=== PATIENT | female | born 1990 | race Caucasian/White ===

== ENCOUNTER 2024-03-31 08:50 | Outpatient (CLI) | payer BC, SELFPAY ==
--- OUTSIDE RECORDS SUMMARY | 2024-03-31 08:54 | XMS_ITS | Clinical Summary ---
Author Name Unknown Organization [facility] Address [address] [place] [address] Care Team Providers Care Supervisor Refining Name Role Phone None Reported, Pcp Primary Care Provider Unavail able Source Comments Patient records contain information from all sites at [facility]. For routine questions regarding patient records, call [phone] during business hours, M-F 8:00 AM - 5:00 PM Central Time. Record requests for emergency care only can be directed to [phone] at any time.[facility] Allergies Active Allergy Reactions Criticality Noted Date Comments Sulfa (Sulfonamide Antibiotics) Other (see comments) 01/08/2017 Medications Medication Sig Dispensed Refills Start Date End Date Status PNV NO.95/FERROUS FUM/FOLIC AC ( MULTIVITAMINS ORAL) Take by mouth daily. 01/08/2017 Active ibuprofen (ADVIL,MOTRIN) 600 mg tablet 07/26/2020 Active metoclopramide (REGLAN) 10 mg tablet 08/11/2020 Act carlene albuterol 90 mcg/actuation inhaler Inhale 1-2 puffs every 4 (four) hours as needed for wheezing or shortness of breath. Active buPROPion XL (WELLBUTRIN XL) 150 mg 24 hr tablet Take 150 mg by mouth daily. 10/02/2023 Active escitalopram (LEXAPRO) 20 mg tablet Take 20 mg by mouth daily. 08/22/2023 Active valACYclovir (VALTREX) 500 mg tablet Take 500 mg by mouth as needed. Active Active Problems No known active problems Immunizations Name Administration Dates Next Due Influenza, Unspecified 09/04/2016 Family History Medical History Relation Name Comments Heart attack Father COPD Grandfather 1 Paternal Diabetes Grandfather 1 Paternal Heart attack Grandfather 2 Maternal Skin cancer Grandfather 2 Maternal Hypertension Grandmother 1 Maternal Hypertension Grandmother 2 Paternal Relation Name Status Comments Father Grandfather 1 Paternal Grandfather 2 Maternal Grandmother 1 Maternal Grandmother 2 Paternal Social History Tobacco Use Types Packs/Day Years Used Date Smoking Tobacco: Never Smokeless Tobacco: Never Overall Financial Resource Strain (CARDIA) Answe r Date Recorded How hard is it for you to pa y for the very basics like food, housing, medical care, and heating? Not very hard 11/04/2023 PHQ-2 Answer Date Recorded PHQ-2 Score 1 08/28/2020 Exercise Vital Sign Answer Date Recorde d On average, how many days pe r week do you engage in moderate to strenuous exercise (like a brisk walk)? 2 days 11/04/2023 On average, how many minutes do you engage in exercise at this level? 30 min 11/04/2023 Hunger Vital Sign Answer Date Recorded Within the past 12 months, y ou worried that your food would run out before you got the money to buy more. Never true 11/04/20 Within the past 12 months, t he food you bought just didn't last and you didn't have money to get more. Never true 11/04/2023 PRAPARE - Transportation Answer Date Re corded In the past 12 months, has l ack of transportation kept you from medical appointments or from getting medications? No 10/24 In the past 12 months, has l ack of transportation kept you from meetings, work, or from getting things needed for daily living? No 11/04/2023 Depression Answer Date Recor ded PHQ-9 Total Score (max 27) 6 08/28 Nutrition Answer Date Recorded Nutrition: EVOO Fat Source Unknown 11/04 On average, how many serving s of fruits and vegetables do you eat per day (serving size is equal to 1 cup or approximately the size of a tennis ball)? 3-5 11/04/2023 Dental Answer Date Recorded Dental: Regular Dentist Yes 11/04/20 Employment Answer Date Recorded Employment status Employed and actively working without restrictions 11/04/2023 Housing Stability Answer Date Recorded What is your living situation today? I have a [facility] place to live 11/04/2023 Sex and Gender Information Value Date Recorded Sex Assigned at Female 08/08/2019 10:17 PM CDT Gender Identity Female 08/08/2019 10:17 PM CDT Sexual Orientation Straight 08/08/2019 10 :17 PM CDT Last Filed Vital Signs Vital Sign Reading Time Taken Comments Blood Pressure 110/63 08/28/2020 10:10 AM CDT Pulse 77 08/28/2020 10:10 AM CDT Temperature 36.6 ??C (97.9 ??F) 08/28/2020 10:10 AM C DT Respiratory Rate 12 08/28/2020 10:10 AM CDT Oxygen Saturation 97% 08/28/2020 10:10 AM CDT Inhaled Oxygen Concentration - - Weight 95.8 kg (211 lb 3.2 oz) 08/28/2020 10:10 AM CDT Height 161 cm (5' 3.39) 08/28/2020 10:10 AM CDT Body Mass Index 36.96 08/28/2020 10:10 AM CDT Plan of Treatment Health Maintenance Due Date Last Done Comments Cervical Cancer Screening 1988 Hepatitis C Screening 1988 Hepatitis B Vaccines (1 of 3 - 19+ 3-dose series) 2007 Depression Screening (Annual PHQ-2) 11/24/2023 Lipid (Cholesterol) Screening 08/22/2028 08/22/2023, 09/04/2022, 11/15/2019, Additional history exists DTaP,Tdap,and Td Vaccines (4 - Td or Tdap) 05/23/2030 05/23/2020, 07/06/2017, 12/03/2011 HPV Vaccines Completed 02/01/2009, 11/0 02/2008, 07/27/2008 HIV Screening Completed 02/05/2017 Influenza Vaccine Completed 08/22/2023, , 08/14/2021, Additional history exists COVID-19 Vaccine Completed 08/26/2023, , 09/25/2021, Additional history exists Pneumococcal vaccine (0-64 years) Aged Out No longer eligible based on patient's age to complete this topic Procedures Procedure Name Priority Date/Time Associated Diagnosis Comments EXTI LIPID PANEL W REFLEX MEASURED LDL Routine 08/22/2023 9:36 AM CDT HIV-1/-2 AG AND AB SCREEN Routine 02/05/2017 3:30 PM CDT from Last 3 Months or Most Recently Relevant to Health Maintenance Results * HIV-1/-2 Ag and Ab Screen (02/05/2017 3:30 PM CDT) HIV-1/-2 Antibody Negative Negative POWERCHART Comment: Negative result does not rule out HIV infection. If acute HIV infection is suspected in a high-risk individual, submit plasma specimen for HIV-1 RNA quantification test (HIVDQ) and/or HIV-2 DNA/RNA test (FHV2Q). Test Performed by: [address] [address] Blood 02/05/2017 3:30 PM CDT Emilia Weaver APRN C.N.P. LAB MICROBIOLO GY - BLOOD ORDERABLES POWERCHART from Last 3 Months or Most Recently Relevant to Health Maintenance Care Teams Supervisor Refining Relationship Specialty Start Date End Date None Reported, Pcp PCP - General 09/01/23
--- OUTSIDE RECORDS SUMMARY | 2024-03-31 08:54 | XMS_ITS ---
Author Name Unknown Organization [facility] Address [address] [place] [address] Care Team Providers Care Registered Clinical Dietitian Name Role Phone Unavailable Unavailable Unavailable Surgery Details Not on file Complications Check Surgery Details section. Procedure Estimated Blood Loss Check Surgery Details section. Procedure Findings Check Surgery Details section. Procedure Specimens Taken Check Surgery Details section.
--- OUTSIDE RECORDS SUMMARY | 2024-03-31 08:54 | XMS_ITS | Referral Summary ---
Author Name Unknown Organization [facility] Address [address] [place] [address] Care Team Providers Care Glass Bulb Silverer Name Role Phone None Reported, Pcp Primary Care Provider Unavail able Source Comments Patient records contain information from all sites at [facility]. For routine questions regarding patient records, call [phone] during business hours, M-F 8:00 AM - 5:00 PM Central Time. Record requests for emergency care only can be directed to [phone] at any time.[facility] Allergies Active Allergy Reactions Criticality Noted Date [...] Administration Dates Next Due Influenza, Unspecified 09/04/2016 Social History Tobacco Use Types Packs/Day Years [...] money to buy more. Never true 11/04/20 23 Within the past 12 months, t he [...] your living situation today? [facility] 11/04/2023 Sex and Gender [...] 08/28/2020 10:10 AM CDT Plan of Treatment Not on file Procedures Procedure Name Priority Date/Time Associated Diagnosis Comments EXTI LIPID PANEL W REFLEX MEASURED LDL Routine 08/22/2023 9:36 AM CDT HIV-1/-2 AG AND AB SCREEN Routine 02/05/2017 3:30 PM CDT from Last 3 Months or Most Recently Relevant to Health Maintenance Results * HIV-1/-2 Ag and Ab Screen (02/05/2017 3:30 PM CDT) Pathologist [facility] HIV-1/-2 Antibody Negative Negative POWERCHART Comment: Negative result does not rule out HIV infection. If acute HIV infection is suspected in a high-risk individual, submit plasma specimen for HIV-1 RNA quantification test (HIVDQ) and/or HIV-2 DNA/RNA test (FHV2Q). Test Performed by: [address] [address] Blood 02/05/2017 3:30 PM CDT Emilia Weaver APRN, C.N.P. LAB MICROBIOLO GY - BLOOD ORDERABLES POWERCHART from Last 3 Months or Most Recently Relevant to Health Maintenance Care Teams Glass Bulb Silverer Relationship Specialty Start Date End Date None Reported, Pcp PCP - General 09/01/23
--- OUTSIDE RECORDS SUMMARY | 2024-03-31 08:55 | XMS_ITS | Clinical Summary ---
Author Name Unknown Organization [facility] Address [place], [place] [address] Care Team Providers Care Laundry Agent Name Role Phone Fatou Malik Primary Care Provider Allergies Active Allergy Reactions Criticality Noted Date Comments Sulfa (Sulfonamide Antibiotics) Rash 12/25 Sulfasalazine Rash Low 09/02/2013 Medications Medication Sig Dispensed Refills Start Date End Date Status albuterol HFA (Ventolin HFA) 90 mcg/actuation inhaler Inhale 1-2 Puffs by mouth every 4 hours if needed. Active valACYclovir (VALTREX) 500 mg tablet Take 500 mg by mouth two times daily. Active buPROPion (WELLBUTRIN XL) 150 mg Extended-Release tabletIndication s:Depression, major, single episode, moderate (HC) Take 1 Tablet (150 mg) by mouth every morning. 100 Tablet 1 03/26/2024 Active escitalopram oxalate (LEXAPRO) 10 mg tabletIndication s:Depression, major, single episode, moderate (HC) Take 1 Tablet (10 mg) by mouth once daily. 100 Tablet 1 03/26/2024 Active CPAPIndications: Obstructive sleep apnea CPAP machine for home use at pressure: 5-16 cmw , Heated humidifier x 1 q 5 yr, Humidifier chamber x 1 q 6 mo, full face mask x1 q 3mos, with cushion x 1 q mo, Heated tubing x 1 q 3 mo, Headgear x 1 q 6 mo, Filters: Disposable x 2 q mo non-disposable filters x1 q 6mo, Length of Need: 99 months, Frequency of use: Daily 1 Each 11 03/26/2024 Active buPROPion (WELLBUTRIN XL) 150 mg Extended-Release tabletIndication s:Depression, major, single episode, moderate (HC) Take 1 Tablet (150 mg) by mouth every morning. 100 Tablet 1 10/02/2023 03/26/2024 Discontinue d(Reorder (E-cancel not sent)) CPAPIndications: Obstructive sleep apnea,Snoring,Ex cessive daytime sleepiness New CPAP machine for home use at pressure: 5-16 cmw , Heated humidifier x 1 q 5 yr, Humidifier chamber x 1 q 6 mo, nasal mask x1 q 3mos, with cushion x 2 q mo, Heated tubing x 1 q 3 mo, Headgear x 1 q 6 mo, Filters: Disposable x 2 q mo non-disposable filters x1 q 6mo, Length of Need: 99 months, Frequency of use: Daily 1 Each 12/02/2023 03/26/2024 Discontinue d(Reorder (E-cancel not sent)) CPAPIndications: Obstructive sleep apnea CPAP machine for home use at pressure: 5-16 cmw , Heated humidifier x 1 q 5 yr, Humidifier chamber x 1 q 6 mo, nasal mask x1 q 3mos, with cushion x 2 q mo, Heated tubing x 1 q 3 mo, Headgear x 1 q 6 mo, Filters: Disposable x 2 q mo non-disposable filters x1 q 6mo, Length of Need: 99 months, Frequency of use: Daily 1 Each 03/26/2024 03/26/2024 Discontinue d(*Medicati on adjustment) Active Problems Problem Noted Date Diagnosed Date Genital herpes simplex 03/05/2017 Obesity 03/05/2017 Allergic rhinitis due to other allergen 09/02/20 13 Intermittent asthma 09/02/2013 Encounters Date Type Department Care Team Description 03/26/2024 3:00 PM CDT Telemedicine [facility] Sathya Fournier [address] [place] [address] Fela Rodriguez NP Telehealth 03/26/2024 [place] [facility] [address] [place] [address] Prabha Puente NP Refill Request (Bupropion) 03/26/2024 Travel from Last 3 Months Immunizations Name Administration Dates Next Due COVID-19 vaccine ([employer] 30mcg/0.3mL) 12YO+ BIVALENT PF, MDV 09/06/2022 Human Papilloma Virus Vaccine 02/01/2009, 008,07/27/2008 Influenza Virus, Unspecified 08/14/2021, 09/04/2016,08/28/2016,2013,08/27/2013 Influenza, IIV3 (Age >=3 years) 11/01/2011 Influenza, IIV4 08/22/2023,,07/14/2020,2017,08/04/2017,08/28/2016 Influenza, IIV4 (=>6mos) MDV 09/20/2019 Influenza, Injectable, Mdck, Quadrivalent, W/preservative 08/14/2021 Tdap 05/23/2020,07/06/2017,12/03/2011 Typhoid (oral) 05/25/2023 Family History Medical History Relation Name Comments Heart attack Father Thyroid Disease Maternal Grandmother Hypertension Mother Psoriasis Mother COPD Paternal Grandfather Smoker Rheum arthritis Paternal Grandmother Relation Name Status Comments Brother 1 Alive Brother 2 Alive Father Alive Maternal Grandfather Maternal Grandmother Mother Alive Paternal Grandfather Paternal Grandmother Sister Alive Social History Tobacco Use Types Packs/Day Years Used Date Smoking Tobacco: Never Smokeless Tobacco: Never Tobacco Cessation:Counseling Given: Yes Alcohol Use Standard Drinks/Week Comments Yes 0 (1 standard drink = 0.6 oz pur e alcohol) 1 beer per night PHQ-2 Answer Date Recorded PHQ-2 TOTAL SCORE 0 03/26/2024 Social Connections Answer Date Recorded Frequency of Communication with Friends and Fami ly 0 08/22/2023 Financial Resource Strain Answer Date R ecorded Difficulty of Paying Living Expenses 3 08/22/2023 Difficulty of Paying Living Expenses Not on file 08/22/2023 Food Insecurity Answer Date Recorded Worried About Running Out of Food in the Last Ye ar 1 08/22/2023 Transportation Needs Answer Date Record ed Lack of Transportation (Medical) 1 08/22/2023 Housing Stability Answer Date Recorded Unable to Pay for Housing in the Last Year 1 08/22/2023 Sex and Gender Information Value Date Recorded Sex Assigned at Not on file Gender Identity Not on file Sexual Orientation Not on file Obstetrics History Para Term AB IAB SAB Ectopic Multiple Livin g Live Births 2 1 1 1 1 1 Date Outcome GA Total Labor Labor/2nd/3rd Weight Sex Delivery Anes PTL Meghan A1 A5 Name Cl in Term SAB Last Filed Vital Signs Vital Sign Reading Time Taken Comments Blood Pressure 126/80 08/22/2023 8:39 AM CDT Pulse 84 08/22/2023 8:39 AM CDT Temperature 37.1 ??C (98.7 ??F) 08/28/2022 4:09 PM CD T Respiratory Rate - - Oxygen Saturation 99% 08/22/2023 8:39 AM CDT Inhaled Oxygen Concentration - - Weight 106.6 kg (235 lb) 08/22/2023 8:39 AM CDT Height 161.8 cm (5' 3.7) 08/22/2023 8:39 AM CDT Body Mass Index 40.72 08/22/2023 8:39 AM CDT Plan of Treatment Health Maintenance Due Date Last Done Comments COVID-19 vaccine series ( season) 2023 09/06/2022, 09/25/2021, 12/21/2020, Additional history exists Influenza for age 9-49 07/25/2024 , 08/28/2022, 08/14/2021, Additional history exists BMI (ht and wt on same day) for age 18+ 08/22/2024 08/22/2023, 09/04/2022, 11/15/2019, Additional history exists Pap test for age 21-65 11/15/2024 11/15/2019, 2018 Depression screening for age 12+ 03/30/2025 03/30/2024, 03/26/2024, 10/02/2023, Additional history exists Tetanus booster 05/23/2030 05/23/2020, 06/24, 12/03/2011 HIV for age 15-65 Completed 11/24/2019 (Co mpleted outside of [facility]) Tdap Completed 05/23/2020, 06/24, 12/03/2011 Hepatitis C screening for age 18-79 Completed 09/04/2022 Pneumococcal series for age 6-64 Aged Out No longer eligible based on patient's age to complete this topic Procedures Procedure Name Priority Date/Time Associated Diagnosis Comments ANTI HCV Routine 09/04/2022 8:58 AM CDT Need for hepatitis C screening test NEWCOMER HOSTESS THIN PREP PAP SCREEN IMAGED Routine 11/15/2019 11:16 AM TUNNEL ELASTIC OPERATOR LOCKSTITCH Screening for malignant neoplasm of cervix from Last 3 Months or Most Recently Relevant to Health Maintenance Results * ANTI HCV (09/04/2022 8:58 AM CDT) HEPATITIS C ANTIBODY Non-React carlene Non-React carlene 09/05/2022 12:09 AM CDT [facility] [employer] [facility] Comment:Antibodies to HCV no t detected; does not exclude the possibility of exposure to HCV. Blood BLOOD SPECIMEN / Unknown Butterfly / Unknown 09/04/2022 8:58 AM CDT 09/04/2022 9:00 AM CDT Fatou GODDARD SEND OUTS [facility] [address] [place] [address], * NEWCOMER HOSTESS THIN PREP PAP SCREEN IMAGED [[id number]] (11/15/2019 11:16 AM TUNNEL ELASTIC OPERATOR LOCKSTITCH) Case Report Gynecologic Cytology Report ? Case: [id number] ? Authorizing Provider: ??Kait Odonnell MD ? Collected: ? 11/15/2019 1116 ? Ordering Location: ? [facility] ?? Received: ?11/15/2019 1156 ? Clinic ? First Screen: ?Renard Gong ? Specimen: ?NEWCOMER HOSTESS ThinPrep Vial Screening, Cervical ? 11/30/2019 12:12 PM TUNNEL ELASTIC OPERATOR LOCKSTITCH [facility] INTERPRETATION/ RESULT NEGATIVE FOR INTRAEPITHELIAL LESION OR MALIGNANCY (NIL) (none) 11/30/2019 12:12 PM TUNNEL ELASTIC OPERATOR LOCKSTITCH [facility] IMEN ADEQUACY Satisfactory for evaluation Endocervical component present 11/30/2019 12:12 PM TUNNEL ELASTIC OPERATOR LOCKSTITCH [facility] HPV REQUEST HPV and PAP 11/30/2019 12:12 PM TUNNEL ELASTIC OPERATOR LOCKSTITCH [facility] Date of LMP 10/26/2019 11/30/2019 12:12 PM TUNNEL ELASTIC OPERATOR LOCKSTITCH [facility] Last Pap Date 08/28/2016 11/30/2019 12:12 PM TUNNEL ELASTIC OPERATOR LOCKSTITCH [facility] Last Pap Result NIL 0 12:12 PM TUNNEL ELASTIC OPERATOR LOCKSTITCH [facility] Abnormal Pap or Sumas Bx in last 5 years No 11/30/2019 12:12 PM TUNNEL ELASTIC OPERATOR LOCKSTITCH [facility] Menstrual Status Regular Periods 11/30/2019 12:12 PM TUNNEL ELASTIC OPERATOR LOCKSTITCH [facility] Sumas Bx Done Today No 11/30/2019 12:12 PM TUNNEL ELASTIC OPERATOR LOCKSTITCH [facility] Additional Information None given 11/30/2019 12:12 PM [facility] Comment: Cytology is screened at [facility] - [address], [place] [address] and [facility] - [address], [place] [address] [facility] - [address] [place] [address] Interpreted at [facility] - [address], [place] [address] Automated Review Successful 11/30/2019 12:12 PM TUNNEL ELASTIC OPERATOR LOCKSTITCH [facility] Comment:Specimen processed s uccessfully by automated nutrition internship device, [email or web address]Prep Imaging System, [employer] ANCILLARY TESTING NEWCOMER HOSTESS HPV Ordered, Please see separate report 11/30/2019 12:12 PM TUNNEL ELASTIC OPERATOR LOCKSTITCH [facility] Note The pap test is a screening technique, not a diagnostic procedure. It is used primarily to screen for squamous cancers and precursor lesions. Published studies have shown that it is subject to both false negative and false positive results. The pap test should not be used as the sole means to diagnose or exclude pre-malignant and malignant lesions. 11/30/2019 12:12 PM [facility] Other (Cervical) Non-Blood / Unknown 11/15/2019 11:16 AM TUNNEL ELASTIC OPERATOR LOCKSTITCH 11/15/2019 11:56 AM TUNNEL ELASTIC OPERATOR LOCKSTITCH Kait Odonnell MD PATHOLOGY/CYTOLOGY [facility] [address] [place] [address], [place] from Last 3 Months or Most Recently Relevant to Health Maintenance Care Teams Laundry Agent Relationship Specialty Start Date End Date Fatou Malik PA [address] [place] [address] PCP - General Physician Atomic Process Engineer 09/29/18
== END 2024-03-31 08:51 | disposition home or self-care (01) ==
LOC: NFLDREF 08:52
PROVIDERS: Visit Provider Obstetrics & Gynecology
DX: N93.9 Abnormal uterine and vaginal bleeding, unspecified (principal)
CPT/HCPCS: 83540; 83550

== ENCOUNTER 2024-04-27 09:35 | Outpatient (CLI) | payer BC, SELFPAY ==
--- OUTSIDE RECORDS SUMMARY | 2024-04-27 09:40 | XMS_ITS | Referral Summary ---
Author Organization [facility] Address [address] [place] [address] Care Team Providers Care Sports Administrator Name Role Phone None Reported, Pcp Primary Care Provider Unavail able Source Comments Patient records contain information from all sites at [facility]. For routine questions regarding patient records, call [phone] during business hours, M-F 8:00 AM - 5:00 PM Central Time. Record requests for emergency care only can be directed to [phone] at any time.[facility] Allergies Active Allergy Reactions Criticality Noted [...] your living situation today? I have a [facility] place to live 11/04/2023 Sex and Gender [...] HIV-2 DNA/RNA test (FHV2Q). Test Performed by: [address] [address] Blood 02/05/2017 3:30 PM CDT Emilia Weaver APRN, C.N.P. LAB MICROBIOLO GY - BLOOD ORDERABLES POWERCHART from Last 3 Months or Most Recently Relevant to Health Maintenance Care Teams Sports Administrator Relationship Specialty Start Date End Date None Reported, Pcp PCP - General 09/01/23
--- OUTSIDE RECORDS SUMMARY | 2024-04-27 09:40 | XMS_ITS | Clinical Summary ---
Author Organization [facility] Address [place], [place] [address] Care Team Providers Care Grease Machine Worker Name Role Phone Fatou Malik Primary Care [...] Active buPROPion (WELLBUTRIN XL) 150 mg Extended-Release tabletIndications:D epression, major, single episode, moderate (HC) Take 1 Tablet (150 mg) by mouth every morning. 100 Tablet 1 03/26/2024 Active escitalopram oxalate (LEXAPRO) 10 mg tabletIndications:D epression, major, single episode, moderate (HC) Take 1 Tablet (10 mg) by mouth once daily. 100 Tablet 1 03/26/2024 Active CPAPIndications:Obs tructive sleep apnea CPAP machine for home use [...] use: Daily 1 Each 11 03/26/2024 Active Active Problems Problem Noted Date Diagnosed Date Genital herpes simplex 03/05/2017 Obesity 03/05/2017 Allergic rhinitis due to other allergen 09/02/20 13 Intermittent asthma 09/02/2013 Encounters Date Type Department Care Team Description 2024 Lab Requisition [facility] [phone] Dilma Bills MD 03/26/2024 3:00 PM CDT Telemedicine [facility] [address] [place] [address] Fela Rodriguez, SURFACE GRINDER Telehealth 03/26/2024 Refill [facility] [address] [place] [address] Prabha Puente, MADHU Refill Request (Bupropion) 03/26/2024 Travel from Last 3 Months Immunizations Name Administration Dates Next Due COVID-19 vaccine (Alfalight NTRotaryView 30mcg/0.3mL) 12YO+ BIVALENT PF, MDV 09/06/2022 Human [...] 08/22/2024 08/22/2023, 09/04/2022, 11/15/2019, Additional history exists Depression screening for age 12+ 03/30/2025 03/30/2024, 03/26/2024, 10/02/2023, Additional history exists Pap test for age 21-65 2029 , 2024, 11/15/2019, Additional history exists Tetanus booster 05/23/2030 05/23/2020, 06/24, 12/03/2011 HIV for age 15-65 Completed 11/24/2019 (Co mpleted outside of [facility]) Tdap Completed 05/23/2020, 06/24, 12/03/2011 Hepatitis C screening for age 18-79 Completed 09/04/2022 Pneumococcal series for age 6-64 Aged Out No longer eligible based on patient's age to complete this topic Procedures Procedure Name Priority Date/Time Associated Diagnosis Comments LAB TRACKING EVENT Routine 2024 9: 00 AM CDT DOLLYMAN THIN PREP PAP SCREEN IMAGED Routine 2024 9:00 AM CDT HPV THIN PREP Routine 2024 9:00 AM CDT ANTI HCV Routine 09/04/2022 8:58 AM CDT Need for hepatitis C screening test from Last 3 Months or Most Recently Relevant to Health Maintenance Results * LAB TRACKING EVENT (2024 9:00 AM CDT) Other (Other) Client Collect / Unknown 2024 9:00 AM CDT 2024 4:16 PM CDT Dilma Bills MD LAB [facility] [address] [place] [address], * DOLLYMAN THIN PREP PAP SCREEN IMAGED (2024 9:00 AM CDT) Case Report Gynecologic Cytology Report ? Case: [id number] ? Authorizing Provider: ??Dilma Bills ??Collected: ? 2024 0900 ? M, MD ? Ordering Location: ? [facility] ?Received: ?04/01/2024 1224 ? First Screen: ?Mich Jerez ? Specimen: ?DOLLYMAN ThinPrep Vial Screening, Cervical ? 04/13/2024 12:27 PM CDT [facility] ENTRAL LABORATORY INTERPRETATION/ RESULT NEGATIVE FOR INTRAEPITHELIAL LESION OR MALIGNANCY (NIL) (none) 04/13/2024 12:27 PM CDT [facility] IMEN ADEQUACY Satisfactory for evaluation Endocervical component present 04/13/2024 12:27 PM CDT [facility] HPV REQUEST HPV and PAP 04/13/2024 12:27 PM CDT [facility] Date of LMP 03/06/2024 04/13/2024 12:27 PM CDT [facility] Last Pap Date 11/15/2019 04/13/2024 12:27 PM CDT [facility] Last Pap Result NIL 12:27 PM CDT [facility] Abnormal Pap or [place] Bx in last 5 years No 04/13/2024 12:27 PM CDT [facility] [place] Bx Done Today No 04/13/2024 12:27 PM CDT [facility] Additional Information 04/13/2024 12:27 PM CDT [facility] Comment: Interpreted at [facility] - [address] [place] [address], [place] [address] Automated Review Successful 04/13/2024 12:27 PM CDT [facility] Comment:Specimen processed s uccessfully by automated visual supervisor device, ThinPrep Imaging System, [employer] ANCILLARY TESTING DOLLYMAN HPV Ordered, Please see separate report 04/13/2024 12:27 PM CDT [facility] Note The pap test is a screening technique, not a diagnostic procedure. It is used primarily to screen for squamous cancers and precursor lesions. Published studies have shown that it is subject to both false negative and false positive results. The pap test should not be used as the sole means to diagnose or exclude pre-malignant and malignant lesions. 04/13/2024 12:27 PM CDT [facility] Other (Cervical) 2024 9:00 AM CDT 04/01/2024 12:24 PM CDT Dilma Bills MD PATHOLOGY/ CYTOLOGY [facility] [address] [place] [address], * HPV HIGH RISK (2024 9:00 AM CDT) TYPE 16 Negative Negative 04/02/2024 5:12 PM CDT [facility] TYPE 18 Negative Negative 04/02/2024 5:12 PM CDT [facility] OTHER HIGH RISK TYPES Negative Negative 04/02/2024 5:12 PM CDT [facility] Other (Cervical) 2024 9:00 AM CDT 04/01/2024 12:24 PM CDT Narrative [facility] - 04/02/2024 5:12 PM CDT HPV types 16, 18, 31, 33, 35, 39, 45, 51, 52, 56, 58, 59, 66 and 68 DNA were undetectable or below the pre-set threshold. Methodology: [employer] [place] [address]00 HPV Test Dilma Bills MD MICROBIOLO GY [facility] [address] [place] [address], * ANTI HCV (09/04/2022 8:58 AM CDT) HEPATITIS C ANTIBODY Non-React carlene Non-React carlene 09/05/2022 12:09 AM CDT [facility] Comment:Antibodies to HCV no t detected; does not exclude the possibility of exposure to HCV. Blood BLOOD SPECIMEN / Unknown Butterfly / Unknown 09/04/2022 8:58 AM CDT 09/04/2022 9:00 AM CDT Fatou GODDARD SEND OUTS [facility] [address] [place] [address], from Last 3 Months or Most Recently Relevant to Health Maintenance Care Teams Grease Machine Worker Relationship Specialty Start Date End Date Fatou Malik PA [address] [place] [address] PCP - General Physician Victim Advocate 09/29/18
--- OUTSIDE RECORDS SUMMARY | 2024-04-27 09:40 | XMS_ITS ---
Author Organization [facility] Address [address] [place] [address] Care Team Providers Care Forensic Manager Name Role Phone Unavailable Unavailable Unavailable Surgery Details Not on file Complications Check Surgery Details section. Procedure Estimated Blood Loss Check Surgery Details section. Procedure Findings Check Surgery Details section. Procedure Specimens Taken Check Surgery Details section.
--- OUTSIDE RECORDS SUMMARY | 2024-04-27 09:40 | XMS_ITS | Clinical Summary ---
Author Organization [facility] Address [address] [place] [address] Care Team Providers Care Tile Power Shear Operator Name Role Phone None Reported, Pcp Primary Care Provider Unavail able Source Comments Patient records contain information from all sites at [facility]. For routine questions regarding patient records, call [phone] during business hours, M-F 8:00 AM - 5:00 PM Central Time. Record requests for emergency care only can be directed to [phone] at any time.[facility] Allergies Active Allergy Reactions Criticality Noted Date [...] your living situation today? I have a [facility] place to live 11/04/2023 Sex and [...] 05/23/2020, 07/06/2017, 12/03/2011 HPV Vaccines Completed 02/01/2009, 11/02/2008, 07/27/2008 HIV Screening Completed 02/05/2017 Influenza Vaccine [...] HIV-2 DNA/RNA test (FHV2Q). Test Performed by: [address] [address] Blood 02/05/2017 3:30 PM CDT Emilia Weaver APRN, C.N.P. LAB MICROBIOLO GY - BLOOD ORDERABLES POWERCHART from Last 3 Months or Most Recently Relevant to Health Maintenance Care Teams Tile Power Shear Operator Relationship Specialty Start Date End Date None Reported, Pcp PCP - General 09/01/23
--- NOTE | 2024-04-27 09:45 | CRLHL7_ITS ---
For Patients: As a result of the Century Cures Act, medical imaging exams and procedure reports are released immediately into your electronic medical record. You may view this report before your referring provider. If you have questions, please contact your health care provider. INDICATION: Abnormal bleeding COMPARISON: none TECHNIQUE: 2D cisneros scale and color Doppler images were acquired of the pelvis using a transabdominal and transvaginal approach. FINDINGS: Sonographic images demonstrate a normal size and smooth outer contour of the uterus. Uterus measures 10.2 cm in length by 5.5 cm in AP diameter by 5.5 cm in transverse dimension. The myometrium has a normal uniform echotexture. The endometrial lining measures 17 mm in composite thickness. The right ovary measures 3.0 x 2.6 x 2.4 cm in size and the left ovary measures 3.0 x 1.9 x 2.5 cm. The ovaries demonstrate normal arterial and venous blood flow on color Doppler analysis. There are no suspicious fluid collections within the cul-de-sac. Simple left ovarian cyst measures 2.0 x 1.7 x 1.5 cm. IMPRESSION: Thickened and heterogeneous endometrium measuring 17 millimeters. Dictated by Nakul Hernández MD @ 04/27/2024 12:42:08 PM (Electronically Signed)
== END 2024-04-27 09:36 | disposition home or self-care (01) ==
LOC: US 09:35
PROVIDERS: Visit Provider Obstetrics & Gynecology
DX: N93.9 Abnormal uterine and vaginal bleeding, unspecified (principal); R93.89 Abnormal findings on diagnostic imaging of other specified body structures
CPT/HCPCS: 76830; 76856; 93976

== ENCOUNTER 2024-10-06 09:51 | Day surgery (SDC) | payer BC, SELFPAY ==
[2024-10-06] VITALS (23 sets, daily range): BP systolic 88–140; BP diastolic 59–86; PULSE 74–98; RESP 12–20; TEMP 36.4–37.1; O2SAT 89–96; BMI 40.6
--- OUTSIDE RECORDS SUMMARY | 2024-10-06 09:57 | XMS_ITS | Clinical Summary ---
Author Organization [facility] Address [place], [place] [address] Care Team Providers Care Pattern Generator Operator Name Role Phone Fatou Malik Primary Care Provider Allergies Active Allergy Reactions Criticality Noted Date Comments Sulfa (Sulfonamide Antibiotics) Rash 12/25 Sulfasalazine Rash Low 09/02/2013 Medications Medication Sig Dispensed Refills Start Date End Date Status valACYclovir (VALTREX) 500 mg tablet Take 500 mg by mouth two times daily. Active CPAPIndications:Ob structive sleep apnea CPAP machine for home use [...] Frequency of use: Daily 1 Each 03/26/2024 Active albuterol HFA (Ventolin HFA) 90 mcg/actuation inhalerIndications :Mild intermittent asthma without complication Inhale 1-2 Puffs by mouth every 4 hours if needed for Shortness Of Breath or Wheezing. 18 g 06/04/2024 Active buPROPion (WELLBUTRIN XL) 150 mg Extended-Release tabletIndications: Depression, major, single episode, moderate (HC) Take 1 Tablet (150 mg) by mouth once daily in the morning. 100 Tablet 08/16/2024 Active escitalopram oxalate (LEXAPRO) 10 mg tabletIndications: Depression, major, single episode, moderate (HC) Take 1 Tablet (10 mg) by mouth once daily. 100 Tablet 08/16/2024 4 Discontinue d(*Patient states no longer taking) Active Problems Problem Noted Date Diagnosed Date Genital herpes simplex 03/05/2017 Obesity 03/05/2017 Allergic rhinitis due to other allergen 09/02/20 13 Intermittent asthma 09/02/2013 Encounters Date Type Department Care Team Description 09/24/2024 7:45 AM CDT Preop Visit [facility] [address] [place] [address] Darling Odell MD Preoperative Exam (Total hysterectomy, 10/06/24, [place]) 09/23/2024 Travel 09/09/2024 Travel 07/23/2024 Lab Requisition [facility] [phone] Dilma Bills MD from Last 3 Months Immunizations Name Administration Dates Next Due COVID-19 VACCINE SPIKEVAX (M ODERNA 50MCG/0.5ML) 12YO+ PFS 08/26/2023 COVID-19 vaccine (Pfizer-Bio NTech 30mcg/0.3mL) 12YO+ BIVALENT PF, MDV 09/06/2022 Human Papilloma Virus Vaccine 02/01/2009, 008,07/27/2008 INFLUENZA, IIV3 PF (AGE >= 6 MO) 08/29/2024 Influenza Virus, Unspecified 08/14/2021, 09/04/2016,08/28/2016,2013,08/27/2013 Influenza, IIV3 (Age >=3 years) 11/01/2011 Influenza, IIV4 08/22/2023, 2,07/14/2020,2017,08/04/2017,08/28/2016 Influenza, IIV4 (=>6mos) MDV 09/20/2019 Influenza, Injectable, [...] Outcome GA Total Labor Labor/2nd/3rd Weight Sex Type Anes PTL Meghan A1 A5 Name Clin Term SAB Last Filed Vital Signs Vital Sign Reading Time Taken Comments Blood Pressure 112/72 09/24/2024 7:48 AM CDT Pulse 93 09/24/2024 7:48 AM CDT Temperature 36.5 ??C (97.7 ??F) 09/24/2024 7:48 AM CD T Respiratory Rate - - Oxygen Saturation 98% 09/24/2024 7:48 AM CDT Inhaled Oxygen Concentration - - Weight 106.6 kg (235 lb) 08/22/2023 8:39 AM CDT Height 161.8 cm (5' 3.7) 08/22/2023 8:39 AM CDT Body Mass Index 40.72 08/22/2023 8:39 AM CDT Plan of Treatment Health Maintenance Due Date Last Done Comments COVID-19 vaccine series ( season) 2024 08/26/2023, 09/06/2022, 09/25/2021, Additional history exists BMI (ht and wt on same day) for age 18+ 08/22/2024 08/22/2023, 09/04/2022, 11/15/2019, Additional history exists Depression screening for age 12+ 03/26/2025 03/26/2024, 10/02/2023, 08/22/2023, Additional history exists Pap test for age 21-65 2029 , 2024, 11/15/2019, Additional history exists Tetanus booster 05/23/2030 05/23/2020, 06/24, 12/03/2011 HIV for age 15-65 Completed 11/24/2019 (Co mpleted outside of [facility]) Tdap Completed 05/23/2020, 06/24, 12/03/2011 Hepatitis C screening for age 18-79 Completed 09/04/2022 Influenza for age 9-49 Completed , 08/22/2023, 08/28/2022, Additional history exists Pneumococcal series for age 6-64 Aged Out No longer eligible based on patient's age to complete this topic Procedures Procedure Name Priority Date/Time Associated Diagnosis Comments HEMOGLOBIN Routine 09/24/2024 8:22 AM CDT Pre-op exam LAB TRACKING EVENT Routine 07/23/2024 9: 40 AM CDT PATH TISSUE EXAM Routine 07/23/2024 9:40 AM CDT INFORMATION SERVICES TECH THIN PREP PAP SCREEN IMAGED Routine 2024 9:00 AM CDT ANTI HCV Routine 09/04/2022 8:58 AM CDT Need for hepatitis C screening test from Last 3 Months or Most Recently Relevant to Health Maintenance Results * HEMOGLOBIN (09/24/2024 8:22 AM CDT) HEMOGLOBIN 13.5 11.7 - 15.5 g/dL [facility] Blood BLOOD SPECIMEN / Unknown 09/24/2024 8:22 AM CDT 09/24/2024 8:23 AM CDT Darling Odell MD HEMATOLOGY [facility] [address] [place] [address], [facility] [address] [place] [address] * LAB TRACKING EVENT (07/23/2024 9:40 AM CDT) Other (Other) Client Collect / Unknown 07/23/2024 9:40 AM CDT 07/23/2024 4:56 PM CDT Dilma Bills MD LAB BILL O NLY Performing Organization Address City/[facility]/ZIP Co de Phone Number [facility] [address] [place] [address], * PATH TISSUE EXAM (07/23/2024 9:40 AM CDT) Case Report Pathology Report ?Case: [id number] ? Authorizing Provider: ??Dilma Gallegos ??Collected: ? 07/23/2024 0940 ? M, MD ? Ordering Location: ? [facility] ?Received: ?07/27/2024 0954 ? Pathologist: ? Cindy Mcdonnell MD ? Specimen: ?Endometrial Biopsy ? 07/28/2024 3:30 PM CDT [facility] Final Diagnosis A) ENDOMETRIUM, BIOPSY: 1. Proliferative endometrium 2. Negative for chronic endometritis 3. Negative for hyperplasia, atypia, and malignancy 07/28/2024 3:30 PM T [facility] Clinical Information Abnormal uterine and vaginal bleeding 07/28/2024 3:30 PM CDT [facility] Gross Description A) Received in formalin, labeled with the patient's name and date of , is a 3.0 x 1.5 x 0.2 cm aggregate of pink-mcgowan mucosa admixed with clotted blood and mucous. The specimen is entirely submitted in 1 cassette. TLF 07/27/2024 07/28/2024 3:30 PM T [facility] Microscopic Description The final diagnosis is based on microscopic examination of appropriate sections of all specimens. 07/28/2024 3:30 PM T [facility] Additional Information Interpreted at [facility], [facility] Laboratory - [address] [facility] [address], [place] [address] 07/28/2024 3:30 PM T [facility] Other (Endometrial Biopsy) 07/23/2024 9:40 AM CDT 07/27/2024 9:54 AM CDT Dilma Bills MD PATHOLOGY/ CYTOLOGY [facility] [address] [place] [address], * INFORMATION SERVICES TECH THIN PREP PAP SCREEN IMAGED (2024 9:00 AM CDT) Case Report Gynecologic Cytology Report ? Case: [id number] ? Authorizing Provider: ??Dilma Bills ??Collected: ? 2024 0900 ? M, MD ? Ordering Location: ? [facility] ?Received: ?04/01/2024 1224 ? First Screen: ?Mich Jerez ? Specimen: ?INFORMATION SERVICES TECH ThinPrep Vial Screening, Cervical ? 04/13/2024 12:27 PM CDT [facility] INTERPRETATION/ RESULT NEGATIVE FOR INTRAEPITHELIAL LESION OR MALIGNANCY (NIL) (none) 04/13/2024 12:27 PM CDT [facility] IMEN ADEQUACY Satisfactory for evaluation Endocervical component present 04/13/2024 12:27 PM CDT [facility] HPV REQUEST HPV and PAP 04/13/2024 12:27 PM CDT [facility] Date of LMP 03/06/2024 04/13/2024 12:27 PM CDT [facility] Last Pap Date 11/15/2019 04/13/2024 12:27 PM CDT [facility] Last Pap Result NIL 12:27 PM CDT [facility] Abnormal Pap or [place] Bx in last 5 years No 04/13/2024 12:27 PM CDT [facility] [place] Bx Done Today No 04/13/2024 12:27 PM T [facility] Additional Information 04/13/2024 12:27 PM T [facility] Comment: Interpreted at [facility] - [address] [facility] [address], [place] [address] Automated Review Successful 04/13/2024 12:27 PM [facility] Comment:Specimen processed s uccessfully by automated film inspector device, ThinPrep Imaging System, [employer] ANCILLARY TESTING INFORMATION SERVICES TECH HPV Ordered, Please see separate report 04/13/2024 12:27 PM T [facility] Note The pap test is a [...] and malignant lesions. 04/13/2024 12:27 PM CDT [facility] EN[facility]AL LABORATORY Other (Cervical) 2024 9:00 AM CDT 04/01/2024 12:24 PM CDT Dilma Bills MD PATHOLOGY/ CYTOLOGY [facility] LABORAT[facility] [address] [place] [address], [place] * ANTI HCV (09/04/2022 8:58 AM CDT) HEPATITIS C ANTIBODY Non-React carlene Non-React carlene 09/05/2022 12:09 AM CDT [facility] Comment:Antibodies to HCV no t detected; does not exclude the possibility of exposure to HCV. Blood BLOOD SPECIMEN / Unknown Butterfly / Unknown 09/04/2022 8:58 AM CDT 09/04/2022 9:00 AM CDT Fatou GODDARD SEND OUTS [facility]AL LABORATORY [address] [place] [address], [place] from Last 3 Months or Most Recently Relevant to Health Maintenance Care Teams Pattern Generator Operator Relationship Specialty Start Date End Date Fatou Malik PA [address] [place], [place] [id number] PCP - General Physician Maintenance Of Way Supervisor 09/29/18
--- OUTSIDE RECORDS SUMMARY | 2024-10-06 09:57 | XMS_ITS ---
Author Organization [facility] Address [address] [place] [address] Care Team Providers Care Manager Database Administration Name Role Phone Unavailable Unavailable Unavailable Surgery Details Not on file Complications Check Surgery Details section. Procedure Estimated Blood Loss Check Surgery Details section. Procedure Findings Check Surgery Details section. Procedure Specimens Taken Check Surgery Details section.
--- OUTSIDE RECORDS SUMMARY | 2024-10-06 09:57 | XMS_ITS | Clinical Summary ---
Author Organization [facility] Address [address] [place] [id number] Care Team Providers Care Timber Robber Name Role Phone None Reported, Pcp Primary Care Provider Unavail able Source Comments Patient records contain information from all sites at [facility]. For routine questions regarding patient records, call [phone] during business hours, M-F 8:00 AM - 5:00 PM Central Time. Record requests for emergency care only can be directed to [phone] at any time.[facility] Allergies Active Allergy Reactions Criticality Noted Date Comments Sulfa (Sulfonamide Antibiotics) Other (see comments) 01/08/2017 Medications albuterol 90 mcg/actuation inhaler Inhale 1-2 puffs every 4 (four) hours as needed for wheezing or shortness of breath. Active buPROPion XL (WELLBUTRIN XL) 150 mg 24 hr tablet Take 150 mg by mouth daily. 3 Active valACYclovir (VALTREX) 500 mg tablet Take 500 mg by mouth as needed. Active escitalopram (Lexapro) 10 mg tablet Take 10 mg by mouth daily. Active tranexamic acid (Lysteda) 650 mg tablet Take 2 tablets by mouth every 4 (four) hours PM. 4 Active Active Problems No known active problems Encounters Date Type Department Care Team Description 07/13/2024 3:15 PM CDT Office Visit Department of Dermatology in [address] [phone] Jossy Doran M.D. Nevi Multiple (Primary Dx); Keratosis Seborrheic; Acrochordon Discharge Disposition: Home or Self Care from Last 3 Months Immunizations Name Administration Dates Next Due Influenza, Unspecified 09/04/2016 Family History Medical History Relation Name Comments Coronary artery disease Father Franky ME a ge 54 Heart attack Father Franky COPD Grandfather 1 Paternal Diabetes Grandfather 1 Paternal Heart attack Grandfather 2 Maternal Skin cancer Grandfather 2 Maternal Hypertension Grandmother 1 Maternal Hypertension Grandmother 2 Paternal Relation Name Status Comments Father Franky Grandfather 1 Paternal Grandfather 2 Maternal Grandmother 1 Maternal Grandmother 2 Paternal Social History Tobacco Use Types Packs/Day Years Used Date Smoking Tobacco: Never Smokeless Tobacco: Never Tobacco Cessation:Counseling Given: Not Answered Alcohol Use Standard Drinks/Week Comments Yes 7 (1 standard drink = 0.6 oz pur e alcohol) Overall Financial Resource Strain (CARDIA) Answe r [...] 27) 6 08/28 Nutrition Answer Date Recorded On average, how many serving s of [...] your living situation today? 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 FITTER Gender Identity Female 08/08/2019 10:17 PM CDT [...] Health Maintenance Due Date Last Done Comments Hepatitis C Screening 1988 Hepatitis B Vaccines (1 of 3 - 19+ 3-dose series) 2007 Depression Screening (Annual PHQ-2) 11/24/2023 COVID-19 Vaccine ( season) 2024 08/26/2023, 09/06/2022, 09/25/2021, Additional history exists Influenza Vaccine (#1) 2024 , 08/28/2022, 08/14/2021, Additional history exists Cervical/Vaginal Cancer Screening 2027 2024 Lipid (Cholesterol) Screening 08/22/2028 08/22/2023, 09/04/2022, 11/15/2019, Additional history exists DTaP,Tdap,and Td Vaccines (4 - Td or Tdap) 05/23/2030 05/23/2020, 07/06/2017, 12/03/2011 HPV Vaccines Completed 02/01/2009, 11/02/2008, 07/27/2008 HIV Screening Completed 02/05/2017 IPV Vaccines Aged Out No longer eligi ble based on patient's age to complete this topic Pneumococcal vaccine (0-64 years) Aged Out No longer eligible based on patient's age to complete this topic Procedures Procedure Name Priority Date/Time Associated Diagnosis Comments HIV-1/-2 AG AND AB SCREEN Routine 02/05/2017 [...] HIV-2 DNA/RNA test (FHV2Q). Test Performed by: [place] [address] Blood 02/05/2017 3:30 PM CDT Emilia Weaver APRN, C.N.P. LAB MICROBIOLOGY - BLO OD ORDERABLES Final Result POWERCHART from Last 3 Months or Most Recently Relevant to Health Maintenance Insurance [facility] Care Teams Timber Robber Relationship Specialty Start Date End Date None Reported, Pcp PCP - General 09/01/23
--- OUTSIDE RECORDS SUMMARY | 2024-10-06 09:57 | XMS_ITS | Referral Summary ---
Author Organization [facility] Address [address] [place] [address] Care Team Providers Care Marketing Manager Name Role Phone None Reported, Pcp Primary Care Provider Unavail able Source Comments Patient records contain information from all sites at [facility]. For routine questions regarding patient records, call [phone] during business hours, M-F 8:00 AM - 5:00 PM Central Time. Record requests for emergency care only can be directed to [phone] at any time.[facility] Encounters Date Type Department Care Team Description 07/13/2024 3:15 PM CDT Office Visit Department of Dermatology in [address] [phone] Jossy Doran M.D. Nevi Multiple (Primary Dx); Keratosis Seborrheic; Acrochordon Discharge Disposition: Home or Self Care from Last 3 Months Allergies Active Allergy Reactions Criticality Noted Date [...] your living situation today? I have a [facility] place to live 11/04/2023 Comments Unknown Sex and Gender Information Value Date Recorded Sex Assigned at Female 08/08/2019 10:17 PM CDT Legal Sex Female 9:35 AM MATTRESS INSPECTOR Gender Identity Female 08/08/2019 10:17 PM CDT [...] HIV-2 DNA/RNA test (FHV2Q). Test Performed by: [address] [id number] Blood 02/05/2017 3:30 PM CDT Emilia Weaver APRN, C.N.P. LAB MICROBIOLOGY - BLO OD ORDERABLES Final Result POWERCHART from Last 3 Months or Most Recently Relevant to Health Maintenance Insurance [facility] Care Teams Marketing Manager Relationship Specialty Start Date End Date None Reported, Pcp PCP - General 09/01/23
--- OUTSIDE RECORDS SUMMARY | 2024-10-06 09:57 | XMS_ITS | Encounter Summary ---
Author Organization [facility] Address [address] [place] [address] Care Team Providers Care Elementary Educator Name Role Phone None Reported, Pcp Primary Care Provider Unavail able Reason for Visit * Reason Comments Skin Check skin tag Encounter Details Date Type Department Care Team (Late st Contact Info) Description 07/13/2024 3:15 PM CDT Office Visit Department of Dermatology in [address] [phone] Jossy Doran M.D. [address] [place] [phone] Nevi Multiple (Primary Dx); Keratosis Seborrheic; Acrochordon Discharge Disposition: Home or Self Care Social History Tobacco Use Types Packs/Day Years [...] your living situation today? 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 - 07/13/2024 3:15 PM CDT SUBJECTIVE CHIEF COMPLAINT / REASON FOR VISIT Full skin cancer screening HISTORY OF PRESENT ILLNESS Jeovanny Gallardo is a pleasant 34 y.o. female who presents for a full skin cancer screening. The patient was last seen by me in Dermatology clinic on 11/11/23. She denies a personal history of skin cancer or family history for melanoma. He maternal grandfather likely had non-melanoma skin cancer. She uses sunscreen. She would particularly like us to evaluate and potentially remove a few skin tags that irritate her today. MEDICAL HISTORY Negative for skin cancer FAMILY HISTORY Negative for melanoma Probable nonmelanoma skin cancer, maternal grandfather OBJECTIVE PHYSICAL EXAMINATION General: Awake, alert, in no acute distress, and with appropriate affect. Eyes: No scleral injection or icterus. No eyelid abnormalities. Lymph: No lower extremity edema. Skin: I have examined the scalp, face, neck, chest, abdomen, back, bilateral upper extremities, andbilateral lower extremities. My scribe (Swati) served as a side boss for the entirety of the exam. Examination of the face, trunk and extremities reveals multiple benign-appearing nevi, lentigines and a few seborrheic keratoses. Examination of the right proximal trapezius reveals a cluster of three small skin tags. The patientstates that these lesions often get irritated. Examination of the right calf reveals a dermatofibroma. Examination today reveals no suspicious lesions for skin cancer. ASSESSMENT / PLAN #1 Right proximal trapezius:Skin tags x 3 We discussed the options of observation versus scissor snip removal. Given the skin tag(s) small size, they would be amenable to treatment with cryotherapy. I discussed with the patient that skin tags can reoccur following treatment. The patient understands and is in agreement with this plan. We recommend a cryotherapy of the skin tags x 3 involving the right proximal trapezius. We treated a total of three lesion(s) with two 5-10-second freeze-thaw cycles of liquid nitrogen cryotherapy. The patient tolerated the procedure well. Aftercare instructions were provided in written and verbal form to the patient. Follow up in 1-2 months if not resolving. #2 Face, trunk and extremities: Multiple nevi and lentigines The ABCDE criteria for melanoma was reviewed with the patient. None of the patient's nevi reach theclinical threshold for biopsy. I recommend continued sun protection, self-skin examinations, and observation. Should any of the patient's nevi change in size, color, texture, or shape or develop symptoms such as itching or bleeding, I recommend an immediate return visit for reassessment. #3 Face, trunk and extremities: Seborrheic keratosis The benign nature of the skin lesion(s) was discussed with the patient. No treatment is required. Irecommend continued observation. Should this lesion change in size, color, texture, or shape or develop symptoms such as itching or bleeding, I recommend an immediate return visit for reassessment. PATIENT EDUCATION: Ready to learn. No apparent learning barriers were identified. Learning preferences include listening. Explained diagnosis and treatment plan; patient/guardian of patient expressed understanding of the content. By signing my name below, I, Swati Encarnacion, attest that this documentation has been prepared underthe direction and in the presence of Jossy Doran M.D. Electronically Signed: clary Sepulveda. 07/13/2024. 3:24 PM CDT. I, Jossy Doran M.D., personally performed the services described in this documentation. All medical record entries made by the scribe were at my direction and in my presence. I have reviewed the chart and discharge instructions (if applicable) and agree that the record reflects my personal performance and is accurate and complete. Jossy Doran M.D. Scribed for Jossy Doran M.D. by Swati Encarnacion, on 07/13/2024, 3:48 PM CDT. documented in this encounter Plan of Treatment Not on file documented as of this encounter Visit Diagnoses Diagnosis Nevi Multiple- Primary Keratosis Seborrheic Acrochordon documented in this encounter Additional Health Concerns Assessment Noted Time PHQ-9 Depression Total Score: 6 08/28/20 10:53 AM CDT documented as of this encounter Care Teams Elementary Educator Relationship Specialty Start Date End Date None Reported, Pcp PCP - General 09/01/23 documented as of this encounter
--- NOTE | 2024-10-06 10:50 | W.ANESCHARGE ---
Anesthesia Charges Start Date/Time Anesthesia Start Date: 10/06/24 Anesthesia Start Time: 13:02 Stop Date/Time Anesthesia Stop Date: 10/06/24 Anesthesia Stop Time: 17:27
[2024-10-06 11:01] LABS: Hemoglobin* 13.7 gm/dL (12.0-16.0)
[2024-10-06 11:03] LABS: Ur HCG Qualitative* Negative (Negative)
[2024-10-06 11:26] LABS: Creatinine* 0.7 mg/dL (0.5-1.5); Est. Creatinine Clearance* 95.94; Estimated Glomerular Filt Rate 115 ml/min
--- NOTE | 2024-10-06 12:37 | W.PM.H&PU ---
History & Physical Update History & Physical Update H&P Reviewed and patient assessed: No changes noted
[2024-10-06] MEDS: LACTATED RINGERS 1000 ML 1,000 ML 100 ML IV ×2 (13:00→15:43)
[2024-10-06] MEDS: CEFAZOLIN 2 GM INJ IVP (13:30)
[2024-10-06] MEDS: 0.9 % SODIUM CHLORIDE 50 ml INJECTION (13:45)
[2024-10-06] MEDS: VASOPRESSIN 20 UNIT/ML INJ INJECTION (13:45)
--- NOTE | 2024-10-06 16:02 | SUR.OPER ---
patient's spouse updated
--- NOTE | 2024-10-06 16:36 | SUR.OPER ---
uterus 128g
[2024-10-06] MEDS: ESTROGENS, CONJUGATED VAGINAL 0.625 MG/G CREAM 1 APPLIC VAGINAL (17:10)
--- NOTE | 2024-10-06 17:45 | W.ANESCHARGE ---
Anesthesia Charges Start Date/Time Anesthesia Start Date: 10/06/24 Anesthesia Start Time: 13:02 Stop Date/Time Anesthesia Stop Date: 10/06/24 Anesthesia Stop Time: 17:27
--- NOTE | 2024-10-06 18:17 | P.GYNPRC_ITS ---
Procedure Note Date of procedure: 10/06/24 Will [facility] bill your pro fee for this procedure?: Yes Pre-op diagnosis: Abnormal uterine bleeding Post-op diagnosis: Abnormal uterine bleeding Procedure: Total vaginal hysterectomy, cystoscopy Anesthesia: regional Complications: None Surgeon: Axel Bills MD Metal Flow Coordinator: Helena Kirby Estimated blood loss (mL): 100 Urine Output (mL): 700 Pathology: specimen obtained, sent to pathology (Uterus) Condition: stable Disposition: floor Findings: Normal external genitalia. Bimanual exam: large anteverted uterus, no adnexal masses. Speculum exam: grossly normal cervix, w/o lesions or abnormal discharge. Multiparous. Uterus elongated, globus in shape of about 10cm. Weight: 139g. Ovaries and fallopian tubes not visualized. Cystoscopy completed and bladder mucosa found intact, no evidence of foreign objects/suture material, bilateral ureteral jets streams noted. Procedure Description: The patient was seen at the preop area. Informed consent was reviewed and signed. The patient was taken to the OR with IV fluid running and pneumatic compression stockings were applied to the lower extremities. Spinal anesthesia was obtained without difficulty. The patient was placed in the dorsal lithotomy position with Duncan type stirrups. Buttock was positioned slightly over the edge the table. The patient was prepped and draped in normal sterile fashion. Examination under anesthesia revealed the findings as above. Gonzalez catheter was inserted in the bladder was emptied. A weighted speculum was placed into the vagina. The anterior and posterior lip of the cervix were grasped with Tory forceps. With outward traction applied on the cervix diluted Vasopressin was injected circumferentially into the cervicovaginal junction for hydrodissection purposes. Afterwards a circumfe rential incision was made with the scalpel at the cervical vaginal junction. Incision was carried down to the para cervical fascia, allowing the cervix to separate from the vagina mucosa. Minimal bleeding encountered. Separation of the anterior vaginal mucosa from uterus performed bluntly with moist gauze and performed until peritoneal reflection identified, this was picked up and entered sharply with Thomas scissors. A right angle retractor was inserted into the vesicouterine space. Attention was then placed to the posterior vagina, where blunt dissection also utilized until identification of the posterior peritoneum, this grasped with pickups and entered sharply with Thomas scissors with the tip pointing to the uterus. Clear peritoneal fluid was noted. The weighted speculum was removed in a long Caroline speculum was inserted into the cul-de-sac. The uterosacral ligaments were clamped with Louise clamps, cut, and suture ligated. Follow-up were the cardinal ligaments. Significant uterine descent was noted, the uterine vessels were identified, clamped, and cut and suture ligated. The broad and round ligaments were then clamped, cut, and suture ligated. Finally the ovarian ligaments were clamped, coagulated and cut utilizing LigaSure impact device.Hemostasis secured. The uterus was removed through the vagina. Examination of all of the pedicles revealed good hemostasis. Moderate bleeding noted from posterior vagina and vaginal edges at 3 and 9 o'clock, these areas were suture ligated with multiple Vicryl 0 sutures in continuous interlocking fashion and figure of 8 stitches, incorporating the posterior peritoneum. Bleeding required a longer than expected time to completely manage, difficulty with exposure due to long vagina, redundant vaginal gore and redundant engraver hand soft metals ior cul de sac fatty tissue, inability to obtain deep Trendelenburg positioning. Attempts made to identify fallopian tubes, patient placed in deep Trendelenburg position, and the bowel was attempted to be packed but patient did not tolerate this position either as anesthesia had some trouble with ventilation with this positioning. Decision was made to not further attempt to complete this part of p rocedure. Afterwards the vaginal angles were sutured to the uterosacral ligaments. The vaginal cuff including the posterior peritoneum was closed with figure of 8 sutures. Cystoscopy performed with normal findings. Vaginal packing with Premarin was left in the vagina. Gonzalez catheter was re placed.All instruments were removed from the vagina, and all counts were correct x2. The patient was taken to the recovery room in a stable condition. She did receive 2g of IV Ancef preoperatively and 1g of TXA.
--- NOTE | 2024-10-06 19:17 | PC.NURSE ---
End of Shift: Patient got up to med surg at 1805. Patient pleasant and cooperative, A&O. VSS, afebrile. Patient denies pain, and denies n/v. Tolerating ice chips and water. Gonzalez catheter patent and draining clear bright yellow urine. SCD's on.
[2024-10-06] MEDS: LACTATED RINGERS 1000 ML 1,000 ML 125 ML IV (19:26)
[2024-10-06] MEDS: IBUPROFEN 600 MG TABLET PO (19:28)
[2024-10-06] MEDS: KETOROLAC 30 MG/ML inj IVP (23:52)
[2024-10-07] VITALS (16 sets, daily range): BP systolic 114–121; BP diastolic 62–69; PULSE 74–97; RESP 16–18; TEMP 36.5–36.7; O2SAT 94–98
[2024-10-07] MEDS: LACTATED RINGERS 1000 ML 1,000 ML 125 ML IV (03:42)
[2024-10-07] MEDS: KETOROLAC 30 MG/ML inj IVP ×2 (05:37→11:35)
--- NOTE | 2024-10-07 07:21 | PC.NURSE ---
Pt alert, oriented and vitally stable. Pain rated 0-3/10 throughout shift. Tolerated with scheduled meds. Pt wears cpap while asleep. Gonzalez patent and draining. Call light within reach.
[2024-10-07 07:24] LABS: Hemoglobin* 11.2 gm/dL (12.0-16.0)
[2024-10-07 07:47] LABS: Creatinine* 0.7 mg/dL (0.5-1.5); Est. Creatinine Clearance* 95.94; Estimated Glomerular Filt Rate 115 ml/min
--- NOTE | 2024-10-07 07:57 | P.DS_ITS ---
DS: Providers Provider Time Seen by Provider: 07:30 Date Seen: 10/07/24 Primary care physician: Not a Local Provider Attending Physician on discharge: Dilma Bills MD Date of Discharge: 10/07/24 DS: Diagnosis Discharge Diagnosis (1) S/P vaginal hysterectomy: Status: Acute LAMP DECORATOR-Discharge Summary Hospital Course Hospital Course Narrative: Patient is a 34 year old admitted on 10/06/2024 for elective surgery. Indication for surgery: Abnormal uterine bleeding. Intraoperative findings were notable for large, globus, floppy uterus. She had an uncomplicated surgery. Postoperative course has been uneventful. Vitals have been stable. She has remained afebrile. Today, on postoperative day 1, she reports the pain is well controlled. She has been able to ambulate Without difficulty. She is tolerating regular diet. She is passing flatus. Gonzalez catheter has been removed, and she is voiding without difficulty. Time Spent with Patient Time attestation: Total time spent providing and/or coordinating discharge services: Time spent: Less than 30 minutes LAMP DECORATOR - Exam Physical Exam: Vital signs: Temp Pulse Resp BP Pulse Ox O2 Del Method 97.8 F 77 18 119/62 95 Room Air 10/07/24 03:00 10/07/24 03:00 10/07/24 06:15 10/07/24 03:00 10/07/24 03:00 10/07/24 03:00 Narrative: VITAL SIGNS: As noted above. GENERAL APPEARANCE: Alert, cooperative female in no acute distress. MOOD & AFFECT: Normal. HEART: Regular rate and rhythm without murmurs. LUNGS: Lungs are clear to auscultation bilaterally. No crackles, wheezes, or rhonchi. ABDOMEN: Positive bowel sounds. Soft, non-distended and slightly tender to palpation of the lower abdominal quadrants. : Vaginal packing removed and dry. No bleeding noted after removal. EXTREMITIES: Nonedematous. Well perfused. Nontender. NEURO: Intact. LAMP DECORATOR - DS: Data Data Completed and Pending Labs on day of discharge: Labs from last 24 hours 10/07/24 10/06/24 10/06/24 06:18 10:53 10:45 Hgb 11.2 L 13.7 Creatinine 0.7 0.7 Estimated Creat Clear 95.94 95.94 Estimated GFR 115 115 Urine HCG, Qual Negative Blood Type O Positive Antibody Screen NEGATIVE Procedures Procedures: Procedures Operation Date: 10/06/24 11:00 Actual Procedure Side Surgeon p Total Vaginal Hysterectomy, Cystoscopy Bilateral Dilma Bills MD Discharge Plan Discharge Discharging Surgeon: Dilma Bills Follow-Up Appointment: Dr. Nolasco, [facility], October 19 @ 10:15 am Prescriptions: New acetaminophen 325 mg Tablet 1,000 mg PO Q4H PRN (Reason: minor pain) Qty: 30 0RF docusate sodium 100 mg Capsule 100 mg PO BID PRN (Reason: Constipation) Qty: 20 0RF ibuprofen 600 mg Tablet 600 mg PO Q6H Qty: 30 0RF oxycodone 5 mg Tablet 5 mg PO Q4H PRN (Reason: Moderate Pain) Qty: 15 0RF Continued bupropion HCl [Wellbutrin XL] 150 mg tablet extended release 24 hr 150 mg PO QAM albuterol sulfate 90 mcg/actuation HFA aerosol inhaler 1 - 2 puff INHALATION Q4H PRN (Reason: wheezing) tranexamic acid 650 mg tablet 1,300 mg PO 3XD Qty: 30 3RF Activity Level: No strenuous activity and No Weight Bearing Activity Detail: No lifting more than 15-20 pounds, nothing vaginally for 6 weeks Discharge Diet: Regular Patient Instructions: Acetaminophen (By mouth), Ibuprofen (By mouth), Laxative, Stool Softeners (By mouth), Oxycodone, Rapid Release (By mouth), Vaginal Hysterectomy (DC) Follow-up: Dilma Bills MD [Staff Physician] - 10/19/24 10:15 am ([facility] for follow-up.) Provider,Not a Local [Primary Care Provider] - Discharge Orders: Discharge Order (Routine); Ordered 10/07/24 Ordered By: Dilma Bills
[2024-10-07] MEDS: buPROPion XL 150 MG TABLET PO (09:21)
[2024-10-07] MEDS: DOCUSATE SODIUM 100 MG CAPSULE PO (09:59)
--- NOTE | 2024-10-07 13:25 | PC.NURSE ---
Discharge: Patient pleasant and cooperative, A&O. VSS, afebrile. SpO2 maintained above 90% on RA. Patient reports minimal pain this shift, managed with scheduled medications, see MAR. Gonzalez catheter removed this shift with tip intact. IV removed with tip intact. Tolerating regular diet, denies n/v. Discharge instructions provided, all questions answered. Discharged to home with at 1247.
== END 2024-10-07 12:47 | disposition home or self-care (01) ==
LOC: OR 09:55 → MEDSURG 09:57
PROVIDERS: Visit Provider Obstetrics & Gynecology
PROC: (CPT 58260; principal; 2024-10-06 11:00)
DX: N93.8 Other specified abnormal uterine and vaginal bleeding (principal); F41.9 Anxiety disorder, unspecified; E66.9 Obesity, unspecified; Z68.41 Body mass index [BMI] 40.0-44.9, adult; A60.00 Herpesviral infection of urogenital system, unspecified; J45.20 Mild intermittent asthma, uncomplicated
CPT/HCPCS: 58260; 00944; 36415; 81025; 82565; 85018; 86850; 86900; 86901; 88307; A9270; J0690; J1100; J1630; J1885; J2250; J2274; J2405; J2704; J3490; J7120